=== PATIENT | male | born 1955 ===

== ENCOUNTER 2023-06-30 17:29 | Emergency (ER) | payer MEDICARE, OTHER, SELFPAY ==
[2023-06-30 17:30] VITALS: BP 189/96
--- NOTE | 2023-06-30 18:02 | ED.GENMED ---
History of Present Illness
<GILMAR Leon - Last Filed: 07/01/23 00:07>
General
Chief Complaint: Cardiac Symptoms
Source: patient
Exam Limitations: none
Time Seen by Provider: 06/30/23 17:45
Nursing documentation reviewed up to this point in time: agreed with
Travel History
Have you had any contact with someone who has COVID-19?: No
Do you have any symptoms of coronavirus? Fever > 100 degrees, chills, cough, shortness of breath, sore throat, loss of taste or smell, muscle aches, or headache?: No
History of Present Illness
History of Present Illness:
Patient is a 67-year-old male who presents to the ER for evaluation. Daughter at bedside assisting with translation reports patient has had upper back pain and neck pain worse the past week and constant not relieved with ibuprofen. Patient denies
any associated chest pain shortness of breath. Daughter reports they went to urgent care he had an EKG which apparently had a left bundle branch block and showed inverted T waves and patient was sent here.
Daughter does report that patient has had this pain off and on for the past year. 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
Because of pain being worse this past week and more consistent he went to urgent care.
Patient has a history of high blood pressure is on amlodipine also has reflux.
Review of Systems
<GILMAR Leon - Last Filed: 07/01/23 00:07>
Review of Systems
Allergies reviewed?: Yes
All Other Systems: ROS reviewed and negative except as documented in HPI and ROS
Constitutional: Reports no symptoms; Denies fever, fatigue or chills
EENT: Reports no symptoms
Respiratory: Reports no symptoms; Denies trouble breathing
Cardiac: Denies chest pain, diaphoresis, palpitations or syncope
ABD/GI: Reports no symptoms
: Reports no symptoms
Musculoskeletal: Reports neck pain and back pain (upper back pain/neck pain )
Skin: Reports no symptoms
Neurological: Reports no symptoms; Denies numbness
Endocrine: Reports no symptoms
Hematologic/Lymphatic: Reports no symptoms
Psychiatric: Reports no symptoms
Phy Exam
<GILMAR Leon - Last Filed: 07/01/23 00:07>
General Physical Exam
General Presentation: no apparent distress
General age: appears stated age
General Skin: warm and dry
General Habitus: normal
General Mental: alert
General Hydration: appears well hydrated
Cardiovascular Exam
Cardiovascular Exam: regular rate/rhythm, no murmur and normal peripheral pulses
Pulmonary Exam
Pulmonary Exam: lungs clear and no respiratory distress
Neurological Exam
Neurological Exam: alert and oriented x3
[place] Coma Scale
Eye Opening: Spontaneous
Verbal Response: Oriented
Motor Response: Obeys Commands
GCS Total Score: 15
Musculoskeletal Exam
Musculoskeletal Exam: other (tender throughout upper back region )
Skin Exam
Skin Exam: normal color and warm/dry
Psychiatric Exam
Psychiatric Exam: normal mood/affect
<Obinna Nicholson MD - Last Filed: 06/30/23 19:09>
[place] Coma Scale
GCS Total Score: 15
Course
<GILMAR Leon - Last Filed: 07/01/23 00:07>
Orders/Labs/Results
Orders:
Orders
06/30/23 17:37
Electrocardiogram (*1) Urgent
Reason for Study: Chest Pain
EKG- Treatment ONCE
06/30/23 18:03
IV Insert/Care/Rem.- Treatment PRN
06/30/23 18:04
Cardiac Monitoring- Treatment ONCE
CR Chest - 2 Views Urgent
Comment:
Reason For Exam: cp
06/30/23 18:05
Ketorolac [Toradol] 15 mg IV NOW STA
06/30/23 18:13
CT Chest Angio W/wo Iv Contras Urgent
Comment:
Reason For Exam: upper back pain
06/30/23 18:34
Complete Blood Count/With Diff Urgent
06/30/23 19:15
Comprehensive Metabolic Panel Urgent
Troponin I Urgent
06/30/23 19:54
diazePAM [Valium Injection] 2 mg IV NOW STA
Abnormal Lab Results
06/30/23 06/30/23
18:34 19:15
RBC 4.45 L 10^6/uL
(4.70-6.10)
MCH 32.8 H pg
(27.0-31.0)
Absolute Neuts (auto) 6.6 H 10^3/uL
(1.4-6.5)
Absolute Monos (auto) 1.0 H 10^3/uL
(0.1-0.6)
Monocytes % 9.7 H %
(1.7-9.3)
Glucose 101 H mg/dl
(70-99)
06/30/23 18:34
06/30/23 19:15
Vital Signs
Initial and Last Documented VS:
Initial Vital Signs
Temp Pulse Resp BP Pulse Ox
98.6 F 69 18 189/96 97
06/30/23 17:30 06/30/23 17:30 06/30/23 17:30 06/30/23 17:30 06/30/23 17:30
Last Documented Vital Signs
Temp Pulse Resp BP Pulse Ox
98.6 F 68 18 141/91 95
06/30/23 17:30 06/30/23 20:30 06/30/23 20:30 06/30/23 19:12 06/30/23 18:00
<Obinna Nicholson MD - Last Filed: 06/30/23 19:09>
Orders/Labs/Results
Orders:
Orders
06/30/23 17:37
Electrocardiogram (*1) Urgent
Reason for Study: Chest Pain
EKG- Treatment ONCE
06/30/23 18:03
IV Insert/Care/Rem.- Treatment PRN
06/30/23 18:04
Cardiac Monitoring- Treatment ONCE
CR Chest - 2 Views Urgent
Comment:
Reason For Exam: cp
06/30/23 18:05
Ketorolac [Toradol] 15 mg IV NOW STA
06/30/23 18:13
CT Chest Angio W/wo Iv Contras Urgent
Comment:
Reason For Exam: upper back pain
06/30/23 18:34
Complete Blood Count/With Diff Urgent
06/30/23 19:15
Comprehensive Metabolic Panel Urgent
Troponin I Urgent
06/30/23 19:54
diazePAM [Valium Injection] 2 mg IV NOW STA
Abnormal Lab Results
06/30/23 06/30/23
18:34 19:15
RBC 4.45 L 10^6/uL
(4.70-6.10)
MCH 32.8 H pg
(27.0-31.0)
Absolute Neuts (auto) 6.6 H 10^3/uL
(1.4-6.5)
Absolute Monos (auto) 1.0 H 10^3/uL
(0.1-0.6)
Monocytes % 9.7 H %
(1.7-9.3)
Glucose 101 H mg/dl
(70-99)
06/30/23 18:34
06/30/23 19:15
Vital Signs
Initial and Last Documented VS:
Initial Vital Signs
Temp Pulse Resp BP Pulse Ox
98.6 F 69 18 189/96 97
06/30/23 17:30 06/30/23 17:30 06/30/23 17:30 06/30/23 17:30 06/30/23 17:30
Last Documented Vital Signs
Temp Pulse Resp BP Pulse Ox
98.6 F 68 18 141/91 95
06/30/23 17:30 06/30/23 20:30 06/30/23 20:30 06/30/23 19:12 06/30/23 18:00
<GILMAR Loen - Last Filed: 07/01/23 00:07>
MDM/Problems Addressed
Differential Diagnosis Includes:
not limited to: muscle pain/ less likely dissection, CAD.
MDM/Problems Addressed:
Patient is a 67-year-old male who has had pain to the left upper back neck area worse the past week. He has had this pain intermittently for the past year. 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
not relieved with ibuprofen. He denies any chest pain shortness of breath. Was seen in urgent care told he had a left bundle branch block on EKG as well as inverted T waves. ED physician however did speak with urgent care and patient had an
apparent right bundle branch block and not a left bundle branch block. Patient has no chest pain no cardiac disease. No bundle-branch block here in the ER. No acute abnormalities heart in the 60s normal sinus rhythm. reviewed with DR Nicholson
will check ct chest angio with increased /persistent back pain.
2011: Patient required larger IV line for CT angio. Patient's initial cardiac troponin is normal. Patient given small dose of Valium for discomfort. As discussed with ED physician we did recommend second troponin as patient does have inverted T
waves although since this pain is not necessarily new and patient has had for a long period of time less likely to be ACS. Family and patient does not want to stay for the next troponin however with cardiology follow-up in place on chest pain
2133: Patient feels slight improvement from Valium, negative CT for dissection, aneurysm/pulmonary embolism will DC with cardiology for history of abnormal EKG along with PCP and orthopedics for upper back pain likely muscular.
Chronic conditions affecting care:
htn reflux
<GILMAR Leon - Last Filed: 07/01/23 00:07>
*Critical Care Note
Total Time (30-74mins, 75-104mins- exclusive of procedures): Not Applicable
ED Attending Note
<GILMAR Leon - Last Filed: 07/01/23 00:07>
-
Portions of this chart may have been created with voice recognition software.� Occasional wrong word or��sound alike� substitutions may have occurred due to the inherent limitations of voice recognition software.
<Obinna Nicholson MD - Last Filed: 06/30/23 19:09>
ED Attending Note
Patient seen and examined by attending physician: Yes
I performed the substantive portion of visit, reviewed & personally made and approve the management plan that is documented in note by myself or DANNY.: Yes
ED Attending Note:
67-year-old male presents with ongoing upper back and neck pain to the shoulder for 1 year. However the last week the pain has become more consistent. His daughter states it is worse when he tries to twist and turn in bed. He has no pleuritic
pain or shortness of breath. Symptoms have been constant for the last week. Patient has not been compliant with his blood pressure medication.
On exam he is nontoxic in no distress. Lungs clear and equal. No rash. Heart regular rate and rhythm no murmur. Abdomen nontender. Warm and dry. Perfusing well.
EKG has some T wave inversion however large S wave in lead III. No other acute changes. Low suspicion for cardiac given the nonexertional continuous nature of the symptoms over the last week if not much longer. Because of the upper back pain
dissection study will be done.
Discharge Plan
Departure
Patient Disposition: Home (Routine Discharge)
Date of Disposition: 06/30/23
Time of Disposition: 21:35
Patient with high blood pressure during this ER visit?: Yes
Condition: Fair
Covid-19: Not Applicable
Discharge Problem:
Back pain
Instructions: Back Pain, Chest Pain CBC Follow Up, BLOOD PRESSURE
Prescriptions:
New
diazepam [Valium] 5 mg tablet
5 mg PO TID PRN (Reason: muscle spasm) Qty: 10 0RF
Referrals:
Gino Murphy MD [Family Provider] -
Ludwin Bray MD [Active] -
Denzel Lora MD [Active] -
Activity Restrictions/Additional Instructions:
As discussed for back pain warm moist heat several times a day. You may take ibuprofen: 400 mg every 8 hours with food. Also a prescription for Valium was sent to pharmacy. Take as directed every 8 hours only as needed. This medication will
cause drowsiness no driving or drinking alcohol on medication. Follow-up with family doctor and orthopedics if needed for further reevaluation of back pain
Also as discussed please follow-up with cardiology for abnormal EKG. If you do not hear from the office in the next 1 to 2 days please give them a call to schedule an appointment and return if any worsening of symptoms including chest pain shortness
Interventions
Interventions:
*Risk Screen - Suicide Last Done: 06/30/23 21:50
*General Assessment Last Done: 06/30/23 19:27
*Neglect/Abuse Screening Last Done: 06/30/23 19:27
*ED COVID-19 Vaccine History Last Done: 06/30/23 21:50
*Nursing Disposition Last Done: 06/30/23 21:50
ED- Pulmonary Assessment Last Done: 06/30/23 19:26
ED- Cardiac Assessment Last Done: 06/30/23 19:26
Discharge Date and Time
Discharge Date/Time: 06/30/23 21:51
[2023-06-30] MEDS: TORADOL 15 MG IV (18:30)
[2023-06-30 18:40] LABS: % Basophils 0.5 % (0-2); % Eosinophils 0.6 % (0-6); % Immature Granulocytes 0.3 % (0-0.5); % Lymphocytes 27.2 % (20.5-51.1); % Monocytes 9.7 % (1.7-9.3); % Neutrophils 61.7 % (42.2-75.2); Absolute Basophils 0.1 10^3/uL (0-0.2); Absolute Eosinophils 0.1 10^3/uL (0-0.7); Absolute Lymphocytes 2.9 10^3/uL (1.2-3.4); Absolute Neutrophils 6.6 10^3/uL (1.4-6.5); Hematocrit 39.9 % (39.0-52.0); Hemoglobin 14.6 g/dL (13.0-18.0); Mean Corp Hgb Conc. 36.6 g/dL (33.0-37.0); Mean Corpuscular Hgb 32.8 pg (27.0-31.0); Mean Corpuscular Volume 89.7 fL (80.0-94.0); Mean Platelet Volume 9.7 fL (7.4-10.4); Nucleated Red Blood Cells % 0 % (-); Platelet Count 344 10^3/uL (130-400); Red Blood Cell Count 4.45 10^6/uL (4.70-6.10); Red Cell Dist. Width 12.3 % (11.5-14.5); White Blood Cell Count 10.7 10^3/uL (4.8-10.8)
[2023-06-30 19:12] VITALS: BP 141/91
[2023-06-30 19:37] LABS: ALT (SGPT) 17 U/L (0-50); AST (SGOT) 26 U/L (17-59); Albumin 4.3 g/dl (3.5-5.0); Alkaline Phosphatase 75 U/L (38-126); Blood Urea Nitrogen 14 mg/dl (9-20); Calcium 9.1 mg/dl (8.4-10.2); Carbon Dioxide 26 mmol/L (22-30); Chloride 103 mmol/L (98-107); Glucose 101 mg/dl (70-99); Potassium 4.1 mmol/L (3.5-5.1); Sodium 135 mmol/L (135-145); Total Bilirubin 0.6 mg/dl (0.2-1.3); eGFR > 60.00
[2023-06-30 19:50] LABS: Troponin I < 0.012 ng/ml
[2023-06-30] MEDS: VALIUM INJECTION 2 MG IV (20:22)
== END 2023-06-30 21:51 | disposition home or self-care (01) ==
LOC: EMR 17:29
PROVIDERS: Nurse Practitioner; EMERGENCY PHYSICIAN Emergency Medicine; FAMILY PHYSICIAN Internal Medicine
DX: M54.6 Pain in thoracic spine (principal); M54.2 Cervicalgia; I10 Essential (primary) hypertension; K21.9 Gastro-esophageal reflux disease without esophagitis
CPT/HCPCS: 99285; 96374; 96375; 71046; 71275; 80053; 84484; 85025; 93005; Q9967

== ENCOUNTER → 2025-05-16 11:00 | Outpatient (REF) | payer MEDICARE, OTHER, SELFPAY | LOC: RAD 11:00 | PROVIDERS: ATTENDING PHYSICIAN Physician Assistant | DX: G89.28 Other chronic postprocedural pain (principal) | CPT/HCPCS: 74177; Q9967 ==